=== PATIENT | female | born 1930 | race Two or more races ===

== ENCOUNTER 2017-11-21 07:42 | Outpatient (CLI) | payer OTHER | END 2017-11-21 07:45 | disposition home or self-care (01) | LOC: RAD 07:42 | DX: M54.5 Low back pain (principal) ==

== ENCOUNTER 2018-02-15 09:58 | Outpatient (CLI) | payer OTHER | END 2018-02-15 10:00 | disposition home or self-care (01) | LOC: RAD 09:58 | DX: J40 Bronchitis, not specified as acute or chronic (principal) ==

== ENCOUNTER 2019-01-20 17:11 | Emergency (ER) | payer OTHER ==
[~2019-01-20] VITALS: Ht 165.1 cm; Wt 40.8 kg
[2019-01-20] MEDS ORDERED: ASPIR 8181 MG (17:24)
[2019-01-20] MEDS ORDERED: STOOL SOFTENER240 MG (17:24)
[2019-01-20] MEDS ORDERED: PERDIEM15 MG (17:25)
[2019-01-20] MEDS ORDERED: DITROPAN XL5 MG (17:25)
[2019-01-20] MEDS ORDERED: L-LYSINE500 M1 (17:25)
[2019-01-20] MEDS ORDERED: FAMOTIDINE40 MG (17:25)
[2019-01-20] MEDS ORDERED: FLEXGEN TABLET1 EACH (17:25)
== END 2019-01-20 19:13 | disposition home or self-care (01) ==
LOC: ER 17:11
DX: E04.2 Nontoxic multinodular goiter (principal); R13.19 Other dysphagia